=== PATIENT | male | born 1940 | race Caucasian/White ===

== ENCOUNTER 2017-03-03 15:23 | Inpatient (IN) | payer MEDICARE, OTHER ==
[~2017-03-03] VITALS: Ht 165.1 cm; Wt 74.8 kg
--- NOTE | 2017-03-04 06:33 | NUR ---
PT BLADDER SCANNED AT APPROXIMATELY 04:00 TO HAVE 524 ML. DID I AND O CATH GOT 500 ML U.O. RESCANNED BLADDER TO BE 12 ML. PT HAD COMPLAINTS OF NAUSEA ONLY ONCE THROUGHOUT THE NIGHT AND RECEIVED ZOFRAN 4 MG AT 23:59.
--- NOTE | 2017-03-04 16:32 | NUR ---
BLADDER SCAN AT 1600 SHOWED 667 MLS. IN AND OUT CATH REMOVED 650 MLS.
--- NOTE | 2017-03-05 03:42 | NUR ---
AT APPROXIMATELY 00:45 NOTICED WHILE IN PT ROOM THAT NG FLUID CHANGED TO BRIGHT BLOODY RED COLOR. HAD RICHARD CIFUENTES AND RICHARD ARREAGA TO WITNESS COLOR OF NASOGASTRIC FLUID. PHONED DR. GOODSON AND ADVISED. GAVE ORDER TO STOP NG SUCTIONING AND GET H & H IN MORNING.
== END 2017-03-05 16:10 | disposition short-term general hospital (02) | DRG 394 ==
LOC: ER 15:23 → MED 20:15
PROVIDERS: ADMIT Internal Medicine
DX: K55.9 Vascular disorder of intestine, unspecified (principal); K56.7 Ileus, unspecified; N17.9 Acute kidney failure, unspecified; E87.2 Acidosis; E87.1 Hypo-osmolality and hyponatremia; I70.90 Unspecified atherosclerosis; I25.10 Atherosclerotic heart disease of native coronary artery without angina pectoris; D72.829 Elevated white blood cell count, unspecified; K52.9 Noninfective gastroenteritis and colitis, unspecified; N40.0 Benign prostatic hyperplasia without lower urinary tract symptoms; Z98.61 Coronary angioplasty status; K21.9 Gastro-esophageal reflux disease without esophagitis; I10 Essential (primary) hypertension; E78.5 Hyperlipidemia, unspecified; Z86.73 Personal history of transient ischemic attack (TIA), and cerebral infarction without residual deficits; Z88.8 Allergy status to other drugs, medicaments and biological substances; Z87.891 Personal history of nicotine dependence; Z90.49 Acquired absence of other specified parts of digestive tract; Z80.9 Family history of malignant neoplasm, unspecified; Z83.3 Family history of diabetes mellitus; Z82.49 Family history of ischemic heart disease and other diseases of the circulatory system
CPT/HCPCS: 36415; 51701; 74020; 96361; 96374; 96375; J1650